=== PATIENT | female | born 1965 | race Caucasian/White ===

== ENCOUNTER 2020-10-24 21:44 | Emergency (ER) | payer MEDICARE ==
[2020-10-24 21:52] VITALS: RESP 22; TEMP 98.2
[2020-10-24] MEDS ORDERED: IPRATROPIUM-ALBUTEROL 3 ML NEB INHALATION STA (22:00)
[2020-10-24] MEDS ORDERED: SODIUM CHLORIDE 0.9% 1,000 ML IV STA (22:00)
[2020-10-24] MEDS ORDERED: SODIUM CHLORIDE 0.9% 500 ML 500 ML IV STA (22:00)
[2020-10-24] MEDS ORDERED: methylPREDNISolone SOD SUCCI 125 MG/2 ML VIAL IV STA (22:00)
--- NOTE | 2020-10-24 22:05 | ED ---
SOB HPI - General Chief Complaint: Shortness of Breath Stated Complaint: SOB Time Seen by Provider: 10/24/20 21:55 Source: police - History of Present Illness Initial Comments: This 55-year-old female presents with a complaint of shortness of breath. She is brought in by the police. She does relate having a cough with yellowish production as well. Symptom onset was approximately 2 weeks ago. She denies any current leg pain or swelling. She denies any chest pain. She denies any known fevers. She does relate a history of COPD and smokes approximately one pack per day. She relates that she previously used to smoke 3-4 packs per day. She does utilize an inhaler at home. She denies any known exposure to the watson virus. She had a negative test approximately 2 weeks ago. - Related Data Previous Rx's Medication Instructions Recorded Azithromycin [Zithromax Z-pack] 0 mg PO DIRECTED #6 tab 10/24/20 RX: predniSONE [Deltasone] 20 mg PO BID #10 tab 10/24/20 Allergies Allergy/AdvReac Type Severity Reaction Status Date / Time No Known Allergies Allergy Verified 10/24/20 22:24 Review of Systems ROS Statement: Those systems with pertinent positive or pertinent negative responses have been documented in the HPI. ROS Other: All systems not noted in ROS Statement are negative. Past Medical History Past Medical History: COPD History of Any Multi-Drug Resistant Organisms: None Reported Past Surgical History: No Surgical Hx Reported Past Psychological History: Bipolar Smoking Status: Current every day smoker Past Alcohol Use History: None Reported Past Drug Use History: None Reported General Exam - General Exam Comments Initial Comments: GENERAL: The patient is well nourished and well hydrated. VITAL SIGNS: Heart rate, blood pressure, respiratory rate reviewed as recorded in nurse's notes. EYES: Pupils are round and reactive. Extraocular movements are intact. No c onjunctival / lid redness or swelling. ENT: No external evidence of injury, swelling, or ecchymosis. Airway is patent. Throat is clear. NECK: Nontender. No swelling or evidence of injury. No subcutaneous emphysema. Trachea is midline. No thyroid mass. HEART: Regular rate and rhythm. Good peripheral pulses. LUNGS/CHEST: There is diminished breath sounds bilaterally with slight wheezing. No ecchymosis, subcutaneous emphysema, or tenderness. ABDOMEN: Abdomen soft without tenderness. No palpable masses or organomegaly. No peritoneal signs. No abdominal wall swelling or ecchymosis. EXTREMITIES: No extremity tenderness. Normal muscle tone and function. No thoracolumbar tenderness. NEUROLOGIC: Sensation is grossly intact. Cranial nerve exam reveals face is symmetrical, tongue is midline, speech is clear. SKIN: No abrasions or ecchymosis is noted. No induration or masses noted. PSYCHIATRIC: Alert and oriented. Appropriate behavior and judgment. Course Vital Signs 10/24/20 10/24/20 10/24/20 21:45 22:09 22:19 Temperature 98.2 F Pulse Rate 84 82 82 Respiratory 22 Rate Blood Pressure 125/40 O2 Sat by Pulse 92 L Oximetry Medical Decision Making - Medical Decision Making The patient was seen and examined. All diagnostics are reviewed. An IV is established and she is mildly hydrated. She receives Solu-Medrol 125 mg IV as well as a DuoNeb breathing treatment. The EKG shows a normal sinus rhythm at a rate of 81. There is no acute ST-T wave changes identified. The WI intervals 134, QRS duration is 96, and the QTc interval is 455. The patient had a chest x-ray done which does not show any acute abnormalities upon my review with final radiologic review pending. The laboratory does show mild leukocytosis. Overall, it is felt as though she likely does have an exacerbation of COPD. She likely also does have a degree of bronchitis. Her Watson virus test is negative. It is felt as though she would benefit from admission to the hospital. She refuses admission. She states that she was just admitted to the hospital couple weeks ago and was on antibiotics as well. Risks and benefits of admission versus discharge are discussed and ultimately detail. It is strongly felt that she would benefit from admission to the hospital as her oxygenation level dropped down to 87% on room air. She still refuses and wants to leave AGAINST MEDICAL ADVICE. She does have an albuterol inhaler at home that she can utilize. She will be signed out AGAINST MEDICAL ADVICE but will be prescribed antibiotics and steroids as well. Return parameters are discussed. She does appear quite lucid and medical decision-making is intact. - Lab Data Result diagrams: 10/24/20 22:17 10/24/20 22:17 Lab Results 10/24/20 10/24/20 10/24/20 Range/Units 22:17 22:17 22:17 WBC 12.3 H (3.8-10.6) k/uL RBC 5.72 H (3.80-5.40) m/uL Hgb 16.3 H (11.4-16.0) gm/dL Hct 48.8 H (34.0-46.0) % MCV 85.4 (80.0-100.0) fL MCH 28.5 (25.0-35.0) pg MCHC 33.4 (31.0-37.0) g/dL RDW 14.2 (11.5-15.5) % Plt Count 268 (150-450) k/uL MPV 6.9 Neutrophils % 71 % Lymphocytes % 21 % Monocytes % 5 % Eosinophils % 1 % Basophils % 1 % Neutrophils # 8.7 H (1.3-7.7) k/uL Lymphocytes # 2.5 (1.0-4.8) k/uL Monocytes # 0.6 (0-1.0) k/uL Eosinophils # 0.1 (0-0.7) k/uL Basophils # 0.1 (0-0.2) k/uL PT 10.2 (9.0-12.0) sec INR 0.9 (<1.2) APTT 23.3 (22.0-30.0) sec Sodium 138 (137-145) mmol/L Potassium 4.1 (3.5-5.1) mmol/L Chloride 101 (98-107) mmol/L Carbon Dioxide 30 (22-30) mmol/L Anion Gap 7 mmol/L BUN 14 (7-17) mg/dL Creatinine 0.63 (0.52-1.04) mg/dL Est GFR (CKD-EPI)AfAm >90 (>60 ml/min/1.73 sqM) Est GFR (CKD-EPI)NonAf >90 (>60 ml/min/1.73 sqM) Glucose 189 H (74-99) mg/dL Plasma Lactic Acid Roscoe (0.7-2.0) mmol/L Calcium 9.5 (8.4-10.2) mg/dL Total Bilirubin 0.6 (0.2-1.3) mg/dL AST 21 (14-36) U/L ALT 13 (4-34) U/L Alkaline Phosphatase 115 (38-126) U/L Troponin I (0.000-0.034) ng/mL Total Protein 7.3 (6.3-8.2) g/dL Albumin 4.2 (3.5-5.0) g/dL Coronavirus (PCR) (Not Detectd) 10/24/20 10/24/20 10/24/20 Range/Units 22:17 22:17 22:18 WBC (3.8-10.6) k/uL RBC (3.80-5.40) m/uL Hgb (11.4-16.0) gm/dL Hct (34.0-46.0) % MCV (80.0-100.0) fL MCH (25.0-35.0) pg MCHC (31.0-37.0) g/dL RDW (11.5-15.5) % Plt Count (150-450) k/uL MPV Neutrophils % % Lymphocytes % % Monocytes % % Eosinophils % % Basophils % % Neutrophils # (1.3-7.7) k/uL Lymphocytes # (1.0-4.8) k/uL Monocytes # (0-1.0) k/uL Eosinophils # (0-0.7) k/uL Basophils # (0-0.2) k/uL PT (9.0-12.0) sec INR (<1.2) APTT (22.0-30.0) sec Sodium (137-145) mmol/L Potassium (3.5-5.1) mmol/L Chloride (98-107) mmol/L Carbon Dioxide (22-30) mmol/L Anion Gap mmol/L BUN (7-17) mg/dL Creatinine (0.52-1.04) mg/dL Est GFR (CKD-EPI)AfAm (>60 ml/min/1.73 sqM) Est GFR (CKD-EPI)NonAf (>60 ml/min/1.73 sqM) Glucose (74-99) mg/dL Plasma Lactic Acid Roscoe 1.2 (0.7-2.0) mmol/L Calcium (8.4-10.2) mg/dL Total Bilirubin (0.2-1.3) mg/dL AST (14-36) U/L ALT (4-34) U/L Alkaline Phosphatase (38-126) U/L Troponin I <0.012 (0.000-0.034) ng/mL Total Protein (6.3-8.2) g/dL Albumin (3.5-5.0) g/dL Coronavirus (PCR) Not Detected (Not Detectd) Disposition Clinical Impression: Dyspnea, Acute respiratory failure, COPD exacerbation, Tobacco abuse, Hypoxia, Bronchitis, Left against medical advice Disposition: Left Against Medical Advice Condition: Fair Instructions (If sedation given, give patient instructions): COPD (Chronic Obstructive Pulmonary Disease) (ED), Acute Bronchitis (ED), How to Stop Smoking (ED) Additional Instructions: Please return if you change her mind about admission or if your symptoms worsen. Prescriptions: RX: predniSONE [Deltasone] 20 mg PO BID #10 tab Azithromycin [Zithromax Z-pack] 0 mg PO DIRECTED #6 tab Is patient prescribed a controlled substance at d/c from ED?: No Referrals: Gabriel Moyer DO [Primary Care Provider] - 1-2 days Time of Disposition: 23:05
[2020-10-24 22:34] LABS: Basophils # (A) 0.1 k/uL (0-0.2); Basophils % (A) 1 %; Eosinophils # (A) 0.1 k/uL (0-0.7); Eosinophils % (A) 1 %; HCT 48.8 % (34.0-46.0); HGB 16.3 gm/dL (11.4-16.0); Lymphocytes # (A) 2.5 k/uL (1.0-4.8); Lymphocytes % (A) 21 %; MCH 28.5 pg (25.0-35.0); MCHC 33.4 g/dL (31.0-37.0); MCV 85.4 fL (80.0-100.0); Mean Platelet Volume 6.9; Monocytes # (A) 0.6 k/uL (0-1.0); Monocytes % (A) 5 %; Neutrophils # (A) 8.7 k/uL (1.3-7.7); Neutrophils % (A) 71 %; Platelet Count 268 k/uL (150-450); RBC 5.72 m/uL (3.80-5.40); RDW 14.2 % (11.5-15.5); WBC 12.3 k/uL (3.8-10.6)
[2020-10-24 22:45] LABS: ALT 13 U/L (4-34); AST 21 U/L (14-36); African American GFR (CKD) >90 (>60 ml/min/1.73 sqM); Albumin 4.2 g/dL (3.5-5.0); Alkaline Phosphatase 115 U/L (38-126); Anion Gap 7 mmol/L; Blood Urea Nitrogen 14 mg/dL (7-17); Calcium 9.5 mg/dL (8.4-10.2); Carbon Dioxide 30 mmol/L (22-30); Chloride 101 mmol/L (98-107); Glucose 189 mg/dL (74-99); Non-African American GFR(CKD) >90 (>60 ml/min/1.73 sqM); Potassium 4.1 mmol/L (3.5-5.1); Sodium 138 mmol/L (137-145); Total Bilirubin 0.6 mg/dL (0.2-1.3); Total Protein 7.3 g/dL (6.3-8.2)
[2020-10-24 22:48] LABS: INR 0.9 (<1.2); Partial Thromboplastin Time 23.3 sec (22.0-30.0); Prothrombin Time 10.2 sec (9.0-12.0)
--- NOTE | 2020-10-24 23:06 | XR ---
EXAMINATION TYPE: XR chest 2V DATE OF EXAM: 10/24/2020 COMPARISON: None HISTORY: Short of breath TECHNIQUE: FINDINGS: There is no heart failure nor confluent pneumonic infiltrate. Costophrenic angles are clear . There are no hilar masses. Heart size is normal. IMPRESSION: No active cardiopulmonary disease. Normal heart.
[2020-10-24 23:45] VITALS: BP 124/78; PULSE 84
== END 2020-10-24 23:42 | disposition left against medical advice (07) ==
LOC: EC 21:44
DX: J96.01 Acute respiratory failure with hypoxia (principal); J44.1 Chronic obstructive pulmonary disease with (acute) exacerbation; F17.210 Nicotine dependence, cigarettes, uncomplicated; Z20.822 Contact with and (suspected) exposure to COVID-19
CPT/HCPCS: 36415; 94640; 93005; 83880; 80053; 83605; 84484; 85025; 85610; 85730; 87040; 87635; 71046; 99285; 96374; 96361; J2930

== ENCOUNTER → 2022-11-09 | Outpatient (CLI) | payer MEDICARE ==
[2022-11-09 15:09] LABS: Partial Thromboplastin Time 24.4 sec (22.0-30.0); Prothrombin Time 10.6 sec (9.0-12.0)
[2022-11-09 22:52] LABS: HCT 51.8 % (37.2-46.3); HGB 16.9 g/dL (12.0-15.0); MCH 29.2 pg (27.0-32.0); MCHC 32.6 g/dL (32.0-37.0); MCV 89.5 fL (80.0-97.0); Mean Platelet Volume 9.4 fL (9.5-12.2); NRBC Per 100 WBC 0 /100 WBCS (0.0-0.0); Platelet Count 227 X 10*3/uL (140-440); RBC 5.79 X 10*6/uL (4.10-5.20); RDW 14.9 % (11.5-14.5); WBC 13.54 X 10*3/uL (4.50-10.00)
[2022-11-09 23:34] LABS: African American GFR (CKD) 118.8 (60.0-200.0); Albumin 4.6 g/dL (3.8-4.9); Albumin/Globulin Ratio 1.96 (1.60-3.17); Anion Gap 10.1 mmol/L (10.00-18.00); BUN/Creat Ratio 18.6 Ratio (12.00-20.00); Blood Urea Nitrogen 11.2 mg/dL (9.0-27.0); Calcium 10.1 mg/dL (8.7-10.3); Carbon Dioxide 27.6 mmol/L (20.0-27.5); Globulin 2.3 g/dL (1.6-3.3); Non-African American GFR(CKD) 102.5 (60.0-200.0); Potassium 4.1 mmol/L (3.5-5.5); Total Bilirubin 0.5 mg/dL (0.30-1.20); Total Protein 6.9 g/dL (6.2-8.2)
[2022-11-09 23:55] LABS: Appearance,Urine Clear (Clear); Bilirubin,Urine Negative (Negative); Blood,Urine Negative (Negative); Color,Urine Yellow (Yellow); Ketones,Urine Negative (Negative); Nitrite,Urine Negative (Negative); PH, Urine 7.5 (5.0-8.0)
== END | disposition home or self-care (01) ==
LOC: LABPAT 13:58
PROVIDERS: ATTEND Orthopaedic Surgery
DX: Z01.812 Encounter for preprocedural laboratory examination (principal); M17.11 Unilateral primary osteoarthritis, right knee
CPT/HCPCS: 36415; 80053; 81003; 85027; 85610; 85730; 87070

== ENCOUNTER → 2022-11-28 | Outpatient (CLI) | payer MEDICARE ==
[2022-11-28 09:30] LABS: Partial Thromboplastin Time 22.2 sec (22.0-30.0); Prothrombin Time 10.2 sec (9.0-12.0)
[2022-11-28 16:29] LABS: HCT 46.3 % (37.2-46.3); HGB 15.3 g/dL (12.0-15.0); MCH 29.7 pg (27.0-32.0); MCV 89.9 fL (80.0-97.0); Mean Platelet Volume 8.9 fL (9.5-12.2); NRBC Per 100 WBC 0 /100 WBCS (0.0-0.0); Platelet Count 396 X 10*3/uL (140-440); RBC 5.15 X 10*6/uL (4.10-5.20); RDW 14.4 % (11.5-14.5); WBC 12.01 X 10*3/uL (4.50-10.00)
[2022-11-28 16:43] LABS: ALT 39 U/L (8-44); AST 27 U/L (13-35); African American GFR (CKD) 121.8 (60.0-200.0); Albumin 4.3 g/dL (3.8-4.9); Albumin/Globulin Ratio 1.64 (1.60-3.17); Alkaline Phosphatase 107 U/L (41-126); Blood Urea Nitrogen 15.4 mg/dL (9.0-27.0); Calcium 10.3 mg/dL (8.7-10.3); Carbon Dioxide 26.9 mmol/L (20.0-27.5); Chloride 101 mmol/L (96-109); Globulin 2.6 g/dL (1.6-3.3); Glucose 147 mg/dL (70-110); Non-African American GFR(CKD) 105.1 (60.0-200.0); Potassium 4.6 mmol/L (3.5-5.5); Sodium 140 mmol/L (135-145); Total Bilirubin <0.15 mg/dL (0.30-1.20)
[2022-11-28 23:41] LABS: Appearance,Urine Clear (Clear); Bilirubin,Urine Negative (Negative); Blood,Urine Negative (Negative); Color,Urine Yellow (Yellow); Ketones,Urine Negative (Negative); Nitrite,Urine Negative (Negative); Specific Gravity,Urine 1.008 (1.001-1.030); Urobilinogen,Urine 0.2 (0.2,1.0)
== END | disposition home or self-care (01) ==
LOC: LABPAT 08:35
PROVIDERS: ATTEND Orthopaedic Surgery
DX: Z01.812 Encounter for preprocedural laboratory examination (principal); M17.11 Unilateral primary osteoarthritis, right knee
CPT/HCPCS: 36415; 80053; 81003; 85027; 85610; 85730

== ENCOUNTER 2022-12-11 11:32 | Observation (INO) | payer MEDICARE ==
[2022-12-05 10:02] VITALS: BMI 37.4
[~2022-12-11 11:32] MED LIST: ACETAMINOPHEN TAB 500 MG TAB PO PRN; GABAPENTIN 300 MG CAP PO PRN; MELOXICAM 7.5 MG TAB PO PRN; TRANEXAMIC ACID IN NACL,ISO-OS 1,000 MG in SALINE 1 100ML.BAG IVPB PRN
[2022-12-11] MEDS ORDERED: LACTATED RINGERS 1,000 ML IV ONE ×4 (12:28→17:30)
[2022-12-11 12:30] LABS: Glucose,Whole Blood 131 mg/dL (70-110)
[2022-12-11] MEDS ORDERED: ONDANSETRON 4 MG/2 ML VIAL ONE (12:37)
[2022-12-11] MEDS ORDERED: DEXAMETHASONE SOD PHOSPHATE 4 MG/ML 1 ML VIAL IVP ONE (12:41)
[2022-12-11] MEDS ORDERED: MIDAZOLAM 2 MG/2 ML VIAL IVP ONE (12:46)
[2022-12-11] MEDS ORDERED: ROPIVACAINE 1,100 MG, SODIUM CHLORIDE 0.9% 500 ML 330 ML, EMPTY PAIN BALL 1 EACH MISCELLANE PRN ×2 (13:13)
--- NOTE | 2022-12-11 13:16 | P.ANPRN ---
Procedure Note - Anesthesia - Nerve Block Performed Right Adductor Canal Time Out Performed: Yes (12:45) Date of Procedure: 12/11/22 Procedure Start Time: 12:45 Procedure Stop Time: 12:51 Location of Patient: PreOp Indication: Acute Post-Operative Pain, Requested by Surgeon (DR Nielson) Sedation Type: Sedate with meaningful contact maintained Preparation: Sterile Prep, Sterile Dressing Position: Supine Catheter: Indwelling Needle Types: Pajunk Needle Gauge: 21 Ultrasound used to visualize needle placement: Yes Ultrasound used to observe medication spread: Yes Injectate: 0.5% Ropivacaine (see comment for volume) (20cc) Blood Aspirated: No Pain Paresthesia on Injection Noted: No Resistance on Injection: Normal Image Stored and Saved: Yes Events: Uneventful and Well Tolerated
--- NOTE | 2022-12-11 13:18 | P.ANPRN ---
Procedure Note - Anesthesia - Nerve Block Performed Right iPack Time Out Performed: Yes Date of Procedure: 12/11/22 Procedure Start Time: 12:52 Procedure Stop Time: 12:57 Location of Patient: PreOp Indication: Acute Post-Operative Pain, Requested by Surgeon (Dr Nielson) Sedation Type: Sedate with meaningful contact maintained Preparation: Sterile Prep Position: Supine Catheter: None Needle Types: Pajunk Needle Gauge: 21 Ultrasound used to visualize needle placement: Yes Ultrasound used to observe medication spread: Yes Injectate: 0.5% Ropivacaine (see comment for volume) (15cc +5cc PF Normal saline) Blood Aspirated: No Pain Paresthesia on Injection Noted: No Resistance on Injection: Normal Image Stored and Saved: Yes Events: Uneventful and Well Tolerated
[2022-12-11] MEDS ORDERED: MIDAZOLAM 2 MG/2 ML VIAL ONE (13:48)
[2022-12-11] MEDS ORDERED: SODIUM CHLORIDE 0.9% (PF) 10 ML VIAL ONE (13:48)
[2022-12-11] MEDS ORDERED: TRANEXAMIC ACID IN NACL,ISO-OS 1,000 MG/100 ML BAG ONE (13:48)
[2022-12-11] MEDS ORDERED: diphenhydrAMINE 50 MG/ML 1 ML VIAL ONE (13:48)
[2022-12-11] MEDS ORDERED: ROPIVACAINE 5 MG/ML 30 ML VIAL ONE (13:48)
[2022-12-11] MEDS ORDERED: ceFAZolin 1,000 MG in SODIUM CHLORIDE 0.9% 1,000 ML IRRIGATION ONE (14:35)
--- NOTE | 2022-12-11 15:10 | P.OP ---
Date of Procedure: 12/11/22 Preoperative Diagnosis: Severe osteoarthritis of the right knee Postoperative Diagnosis: Severe osteoarthritis right knee Procedure(s) Performed: Right total knee arthroplasty Implants: [employer] Journey II CR Oxinium cruciate retaining femoral component size 5, right [employer] Journey nonporous tibial baseplate size 4, right [employer] Journey II, XLPE Deep Dished articular insert, size 11 mm, Size 3-4, right [employer] Journey Betzaida II resurfacing patellar component, oval, 29 mm All components were cemented using Palacos R bone cement The articulation is Oxinium on polyethylene Anesthesia: spinal Surgeon: Nikolay Nielson Geologic Technician #1: Larisa Navarro Estimated Blood Loss (ml): 40 Pathology: other (Bone cartilage) Condition: stable Disposition: PACU Indications for Procedure: The patient's knee is end-stage, and conservative management has failed. The operation of knee replacement has been discussed at length in the office, as well as potential risks and complications. These are inclusive of, but not limited to: Infection, bleeding, scarring, discomfort, stiffness, blood vessel and nerve damage, need for further surgery, failure to relieve symptoms, persistence, recurrence, or worsening of problems, loosening, dislocation, wear, blood clot, pulmonary embolism, , gait dysfunction, stiffness, and other risks as discussed in the office. Patient elects to proceed and the consent form has been signed. Operative Findings: The operative findings are consistent with severe osteoarthritis of the right knee Description of Procedure: Patient was seen in the preoperative area and the consent was reviewed and the operative site was marked with a skin marker. The patient verified the procedure and the operative site. An adductor canal pain catheter and an IPACK block were placed by anesthesia in the preoperative area. The patient was then brought to the operating room and positioned on the operating room table in the supine position. Preoperative antibiotics and a gram of transexamic acid were given intravenously. A spinal anesthetic was administered by the anesthesia department. Care was taken to make sure that all pressure points were adequately padded. A tourniquet was placed on the upper thigh and the lower extremity was prepped with ChloraPrep and draped in usual sterile fashion. A universal timeout was then performed which confirmed the patient's name, surgical site, ALLERGIES, and consent. The lower extremity was then exsanguinated and tourniquet was inflated to 250 mmHg. A standard anterior midline approach to the knee was performed. The skin and subcutaneous tissue were sharply dissected down to the patellar tendon. A medial parapatellar arthrotomy was then performed. The knee was then extended, the patellar was everted, and the knee was flexed. The infra-patellar fat pad was removed in order to enhance exposure. The anterior horns of both menisci were excised, and a release was performed to the posterior medial aspect of the knee. On gross visual inspection, there was complete loss of articular cartilage in the medial and patellofemoral joint spaces. There was also significant cartilage damage in the lateral compartment. There were multiple periarticular osteophytes globally about the knee which were then removed with a Ronguer. The femoral canal was then opened with the 9.5 mm intramedullary drill. The 8 mm intramedullary katelyn was then inserted into the femoral canal with the distal femoral cutting guide set for 5 of valgus. The distal femoral cutting block was then pinned in place. The intramedullary katelyn was then removed, and the distal femur was then cut. The cutting block was then removed and the cut was checked for symmetry. The resected bone was then measured to confirm the appropriate distal femoral resection. Next, the sizing guide was then placed and set for 3 external rotation based off of the epicondylar axis and Oatman's line. Pins were then placed and the drill holes, and the femur was sized with the sizing stylus. The pins were then removed, and the sizing guide was then removed. The spikes of the appropriate size femoral block was then placed into the predrilled holes, and malleted into place. Two 45 mm pins were then placed into the fixation holes on the cutting block. An carlita wing was then used to ensure there would be no notching with the anterior cut. The anterior condyles were cut without notching. The anterior chord cut was then performed, followed by the posterior cut, posterior chamfer cut, and the anterior chamfer cut. The collateral ligaments were protected during the entire process. The cutting block was then removed. Any remaining bone and osteophytes were removed from the femur with a Ronguer. Attention was then directed to the tibia. The remaining ACL was removed with a Ronguer, and the tibia was then gently subluxed forward with a large bent knee retractor. Any remaining menisci were excised. The posterior lateral corner was cauterized in order to coagulate the lateral geniculate artery. The extra medullary tibial cutting guide was then placed, set for the appropriate rotation, slope, and depth of resection. The proximal tibia cutting guide was then pinned in place. Proximal tibia was then cut and sized. A curved osteotome was then used to remove any posterior osteophytes from the distal femur. The femoral trial was placed. A narrow saw blade was then used to remove the anterior intracondylar femoral bone. The CR notch trial was then placed. The t ibial trial was placed with the appropriate-sized insert. The knee was able to fully extend and flex to 130 and was stable throughout all range of motion. The knee was then extended and the patella was everted. Patella was then measured, and then using an osteotomy guide, the patella was cut at the appropriate level. The patellar component was sized. The patellar drill guide was placed and the patella was drilled. The patella trial was then placed. The knee was then taken through range of motion with the patella trial and the patella tracked normally using the no thumbs technique. The patella trial was then removed. The knee was then flexed and lug holes were drilled through the femoral trial and the femoral trial was then removed. The tibial was then re- exposed, and the tibial broach guide was then pinned in place after it was set for the appropriate rotation to allow for the most coverage without overhang. The tibia was then reamed and broached. The femoral canal was plugged with autologous bone. The cut surfaces of bone were then irrigated with pulsatile lavage. The knee was also irrigated with Irrisept solution. The components were then opened, the cement was mixed. Cement was placed on the backside of the femoral, tibial, and patellar components. Cement was then applied to the tibial surface and pressurized into the surface using finger pressurization technique. The tibial component was then applied and excess cement was removed after it was impacted securely noted to be flush with the cut surface. In similar fashion, the cement was applied to the cut femoral surface, pressurized and using finger pressurization the component was impacted in place. Excess cement was removed. The polyethylene spacer was then implanted and locked into position. Patellar component was then applied in a similar technique and the patellar clamp was used to hold patella in place while the cement hardened. The knee was held in full extension while the cement hardened. Once the cement had fully hardened, the knee was reinspected. Any other cement extrusion was removed the final range of motion testing showed range of motion from 0-130 with excellent stability, both medial and laterally and appropriate alignment of the leg. Patella tracked normally. After the cemented hardened, the tourniquet was released and hemostasis was obtained. A second gram of transexamic acid was given intravenously. The knee was again irrigated. The knee was again taken through range of motion and found to be stable throughout all range of motion of 0-130, and the patella tracked normally. The fascia was then closed with 0 Vicryl followed by #2 strata fix suture. The subcutaneous tissue was closed with 3-0 Vicryl and 3-0 strata fix. Exofin glue was used for the skin and placed with the knee in flexion. After the glue had dried, and Optafoam silver impregnated dressing was applied. A lightly compressive dressing was applied using web roll and wrap. Patient was then transferred to the stretcher and taken to recovery room in stable condition. Sponge and needle counts were correct. The pest controller assistant GLORIA Palumbo was required due the complexity surgery and the need for a skilled surgical elastic knitter. She assisted in positioning, draping, retraction, and closure of the wound.
[2022-12-11] MEDS ORDERED: NA PHOS,M-B/NA PHOS,DI-BA 133 ML ENEMA RECTAL PRN (15:35)
[2022-12-11] MEDS ORDERED: NALOXONE 0.4 MG/ML 1 ML VIAL IV PRN ×2 (15:35→16:21)
[2022-12-11] MEDS ORDERED: MAGNESIUM HYDROXIDE 2,400 MG/10 ML CUP PO PRN (15:35)
[2022-12-11] MEDS ORDERED: bisacodyL 10 MG SUPP RECTAL PRN (15:35)
[2022-12-11] MEDS ORDERED: HYDROmorphone 0.5 MG/0.5 ML SYRINGE IVP PRN ×3 (15:50)
[2022-12-11] MEDS ORDERED: oxyCODONE-APAP 7.5-325MG 1 EACH TAB PO PRN (15:50)
[2022-12-11] MEDS ORDERED: ACETAMINOPHEN TAB 325 MG TAB PO PRN (16:16)
[2022-12-11] MEDS: SODIUM CHLORIDE 0.9% 1,000 ML IV SCH (16:26)
--- NOTE | 2022-12-11 16:49 | XR ---
EXAMINATION TYPE: XR knee limited RT DATE OF EXAM: 12/11/2022 COMPARISON: Two-view right knee HISTORY: Postop evaluation TECHNIQUE: 2 view right knee FINDINGS: Tibial and femoral components of place. No joint effusion is evident. Postsurgical soft tis lenore changes are evident. IMPRESSION: 1. No acute fractures post placement
[2022-12-11] MEDS: HYDROmorphone PCA 10 MG/50 ML BAG IV PRN (19:40)
[2022-12-11] MEDS ORDERED: DEXTROSE 50% SYRINGE 50 ML IVP PRN ×2 (20:33)
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
[2022-12-11] MEDS: IPRATROPIUM-ALBUTEROL 3 ML NEB INHALATION SCH (20:47)
[2022-12-11] MEDS: BUDESONIDE 1 MG/2 ML NEBU INHALATION SCH (20:47)
[2022-12-11] MEDS ORDERED: SUBOXONE SUBLINGUAL SCH (21:00)
[2022-12-11] MEDS: LITHIUM CARBONATE 150 MG CAP PO SCH (21:15)
[2022-12-11] MEDS: ATORVASTATIN 80 MG TAB PO SCH (21:15)
[2022-12-11] MEDS: ALPRAZolam 1 MG TAB PO SCH (21:15)
[2022-12-11] MEDS: SENNOSIDES-DOCUSATE SODIUM 1 EACH TAB PO SCH (21:15)
[2022-12-11] MEDS: ASPIRIN 325 MG TAB PO SCH (21:16)
[2022-12-11] MEDS: NICOTINE 21MG/24HR PATCH TRANSDERM SCH (21:16)
[2022-12-11] MEDS: MELATONIN 5 MG TABLET PO SCH (21:16)
[2022-12-11] MEDS: SUBOXONE SUBLINGUAL SCH (21:16)
[2022-12-11 21:25] LABS: Glucose,Whole Blood 201 mg/dL (70-110)
[2022-12-11] MEDS: INSULIN ASPART (NovoLOG) 100 UNIT/ML VIAL SQ SCH (21:29)
[2022-12-12] MEDS: KETOROLAC 15 MG/ML 1 ML VIAL IVP PRN ×3 (00:16→18:07)
[2022-12-12] MEDS: SODIUM CHLORIDE 0.9% 1,000 ML IV SCH ×2 (06:12→22:20)
[2022-12-12 06:14] LABS: Glucose,Whole Blood 182 mg/dL (70-110)
[2022-12-12] MEDS: INSULIN ASPART (NovoLOG) 100 UNIT/ML VIAL SQ SCH ×4 (06:41→20:40)
[2022-12-12] MEDS: HYDROmorphone PCA 10 MG/50 ML BAG IV PRN (07:04)
--- NOTE | 2022-12-12 07:21 | P.PN ---
Progress Note - Text Progress Note Date: 12/12/22 Postoperative day # 1 status post total knee arthroplasty, and adductor canal catheter placed for postoperative analgesia, currently at ropivacaine 0.2% 8 mL per hour and continuous infusion, patient had a history of opiate addiction ,and she is currently on Dilaudid intravenous FEED HOUSE SUPERVISOR, for breakthrough pain. Assessment and plan= Acute postoperative pain, adductor canal catheter for pain control, we'll continue the same management.
--- NOTE | 2022-12-12 07:44 | P.DS ---
Providers Expected date of discharge: 12/12/22 Attending physician: Nikolay Nielson Consults: 12/11/22 15:35 Consult Physician Routine Consulting Provider: Shen Moreno Consult Reason/Comments: medical management Do you want consulting provider notified?: Yes Primary care physician: Gifty Willis - Discharge Diagnosis(es) (1) Primary localized osteoarthritis of right knee Current Visit: Yes Status: Acute (2) Status post total right knee replacement Current Visit: Yes Status: Acute Hospital Course: This is a 57-year-old female who was last seen with complaint of continued right knee pain. The patient has a known history of degenerative arthritis of the right knee and presents to discuss surgical options. After discussion and consideration the patient elects to proceed with total right knee arthroplasty. The patient is seen preoperatively by her primary care physician and cleared for surgery. The patient is admitted to [facility] for total right knee arthroplasty. The procedures performed without complication or sequelae. P atient is doing well postoperatively. Vital signs are stable at discharge. Labs are stable at discharge. the patient is ambulating well with walker with minimal assistance. The patient is discharged to home on postop day #1 pending medical clearance. Please see orders and refer to the med rec for accurate list of medications. The patient has a pain management contract. We will send her home with 5 days worth of oxycodone 10/325. The patient is aware that she needs to contact her pain management doctor for further prescriptions. Patient Condition at Discharge: Stable Plan - Discharge Summary Discharge Rx Participant: No New Discharge Prescriptions: New oxyCODONE-APAP 10-325MG [Percocet 10-325 mg] 1 tab PO Q6HR PRN 5 Days #20 tab PRN Reason: Pain Aspirin 325 mg PO BID #60 tab No Action Cholecalciferol [Vitamin D3 (25 Mcg = 1000 Iu)] 25 mcg PO DAILY ALPRAZolam [Xanax] 1 mg PO BID [place] Carbonate 300 mg PO 1700 [place] Carbonate 150 mg PO QAM lisinopriL [Zestril] 5 mg PO 1700 Aspirin 81 mg PO DAILY Melatonin 1 dose PO HS Cyanocobalamin (Vitamin B-12) [Vitamin B-12] 1,000 mcg PO DAILY Acetaminophen Tab [Tylenol] 1,000 - 1,500 mg PO BID PRN PRN Reason: Pain Naproxen Sodium [Aleve] 220 mg PO BID PRN PRN Reason: Pain Buprenorphine HCl/Naloxone HCl [Buprenorphine-Nalox 2-0.5MG Tb] 0.5 film SUBLINGUAL BID fluPHENAZine [Prolixin 5MG] 5 mg PO 1700 metFORMIN HCL [Glucophage] 1,000 mg PO 1700 Ascorbic Acid [Vitamin C] 1,000 mg PO DAILY Rosuvastatin Calcium 40 mg PO DAILY@1700 Discharge Medication List ALPRAZolam [Xanax] 1 mg PO BID 11/14/22 [History] Acetaminophen Tab [Tylenol] 1,000 - 1,500 mg PO BID PRN 11/14/22 [History] Ascorbic Acid [Vitamin C] 1,000 mg PO DAILY 11/14/22 [History] Aspirin 81 mg PO DAILY 11/14/22 [History] Buprenorphine HCl/Naloxone HCl [Buprenorphine-Nalox 2-0.5MG Tb] 0.5 film SUBLINGUAL BID 11/14/22 [History] Cholecalciferol [Vitamin D3 (25 Mcg = 1000 Iu)] 25 mcg PO DAILY 11/14/22 [History] Cyanocobalamin (Vitamin B-12) [Vitamin B-12] 1,000 mcg PO DAILY 11/14/22 [History] [place] Carbonate 150 mg PO QAM 11/14/22 [History] [place] Carbonate 300 mg PO 1700 11/14/22 [History] Melatonin 1 dose PO HS 11/14/22 [History] Naproxen Sodium [Aleve] 220 mg PO BID PRN 11/14/22 [History] fluPHENAZine [Prolixin 5MG] 5 mg PO 1700 11/14/22 [History] lisinopriL [Zestril] 5 mg PO 1700 11/14/22 [History] metFORMIN HCL [Glucophage] 1,000 mg PO 1700 11/14/22 [History] Rosuvastatin Calcium 40 mg PO DAILY@1700 12/05/22 [History] Aspirin 325 mg PO BID #60 tab 12/12/22 [Rx] oxyCODONE-APAP 10-325MG [Percocet 10-325 mg] 1 tab PO Q6HR PRN 5 Days #20 tab 0 12/12/22 [Rx] Discharge Disposition: HOME SELF-CARE
[2022-12-12] MEDS: BUDESONIDE 1 MG/2 ML NEBU INHALATION SCH ×2 (08:19→21:27)
[2022-12-12] MEDS: IPRATROPIUM-ALBUTEROL 3 ML NEB INHALATION SCH ×4 (08:19→21:28)
[2022-12-12] MEDS ORDERED: ASPIRIN 81 MG PO SCH (09:00)
[2022-12-12] MEDS: LITHIUM CARBONATE 150 MG CAP PO SCH ×2 (09:53→17:18)
[2022-12-12] MEDS: ASPIRIN 325 MG TAB PO SCH ×2 (09:53→20:36)
[2022-12-12] MEDS: CYANOCOBALAMIN 500 MCG TAB PO SCH (09:53)
[2022-12-12] MEDS: NICOTINE 21MG/24HR PATCH TRANSDERM SCH (09:54)
[2022-12-12] MEDS: ALPRAZolam 1 MG TAB PO SCH ×2 (09:54→20:35)
[2022-12-12] MEDS: ASCORBIC ACID 500 MG TAB PO SCH (09:54)
[2022-12-12] MEDS: CHOLECALCIFEROL 25 MCG (1000 IU) TABLET PO SCH (09:54)
[2022-12-12] MEDS: SUBOXONE SUBLINGUAL SCH ×2 (10:19→20:36)
[2022-12-12 10:55] LABS: Basophils # (A) 0.01 X 10*3/uL (0.00-0.10); Basophils % (A) 0.1 %; Eosinophils # (A) 0 X 10*3/uL (0.04-0.35); Eosinophils % (A) 0 %; HCT 41.2 % (37.2-46.3); HGB 13.4 g/dL (12.0-15.0); Immature Grans, Automated 0.5 %; Lymphocytes # (A) 2.22 X 10*3/uL (0.90-5.00); Lymphocytes % (A) 16.6 %; MCH 29.9 pg (27.0-32.0); MCHC 32.5 g/dL (32.0-37.0); Mean Platelet Volume 9.5 fL (9.5-12.2); Monocytes # (A) 1.25 X 10*3/uL (0.20-1.00); Monocytes % (A) 9.3 %; NRBC Per 100 WBC 0 /100 WBCS (0.0-0.0); Neutrophils # (A) 9.85 X 10*3/uL (1.80-7.70); Neutrophils % (A) 73.5 %; Platelet Count 225 X 10*3/uL (140-440); RBC 4.48 X 10*6/uL (4.10-5.20); RDW 14.6 % (11.5-14.5)
[2022-12-12 11:11] LABS: Glucose,Whole Blood 218 mg/dL (70-110)
[2022-12-12 16:38] LABS: Glucose,Whole Blood 166 mg/dL (70-110)
[2022-12-12] MEDS ORDERED: lisinopriL 5 MG TAB PO SCH (17:00)
[2022-12-12] MEDS ORDERED: metFORMIN 500 MG TAB PO SCH (17:00)
[2022-12-12] MEDS: ATORVASTATIN 80 MG TAB PO SCH (17:18)
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
[2022-12-12] MEDS: SENNOSIDES-DOCUSATE SODIUM 1 EACH TAB PO SCH (20:35)
[2022-12-12] MEDS: MELATONIN 5 MG TABLET PO SCH (20:36)
[2022-12-12 20:41] LABS: Glucose,Whole Blood 133 mg/dL (70-110)
[2022-12-12] MEDS: oxyCODONE-APAP 10-325MG 1 EACH TAB PO PRN (23:04)
[2022-12-13] MEDS: KETOROLAC 15 MG/ML 1 ML VIAL IVP PRN ×2 (02:27→08:36)
[2022-12-13 02:30] VITALS: RESP 20
[2022-12-13] MEDS: oxyCODONE-APAP 10-325MG 1 EACH TAB PO PRN ×2 (05:16→11:39)
[2022-12-13] MEDS: SODIUM CHLORIDE 0.9% 1,000 ML IV SCH (05:23)
[2022-12-13 05:56] LABS: Glucose,Whole Blood 146 mg/dL (70-110)
[2022-12-13] MEDS: INSULIN ASPART (NovoLOG) 100 UNIT/ML VIAL SQ SCH ×2 (06:15→11:40)
[2022-12-13 07:56] VITALS: BP 116/71; TEMP 98.6
[2022-12-13] MEDS: BUDESONIDE 1 MG/2 ML NEBU INHALATION SCH (08:30)
[2022-12-13] MEDS: IPRATROPIUM-ALBUTEROL 3 ML NEB INHALATION SCH ×2 (08:30→11:58)
[2022-12-13] MEDS: CHOLECALCIFEROL 25 MCG (1000 IU) TABLET PO SCH (08:35)
[2022-12-13] MEDS: ALPRAZolam 1 MG TAB PO SCH (08:36)
[2022-12-13] MEDS: LITHIUM CARBONATE 150 MG CAP PO SCH (08:36)
[2022-12-13] MEDS: ASCORBIC ACID 500 MG TAB PO SCH (08:36)
[2022-12-13] MEDS: ASPIRIN 325 MG TAB PO SCH (08:36)
[2022-12-13] MEDS: NICOTINE 21MG/24HR PATCH TRANSDERM SCH (08:36)
[2022-12-13] MEDS: CYANOCOBALAMIN 500 MCG TAB PO SCH (08:36)
[2022-12-13] MEDS: SUBOXONE SUBLINGUAL SCH (09:20)
[2022-12-13 11:19] LABS: Glucose,Whole Blood 153 mg/dL (70-110)
[2022-12-13 12:11] VITALS: PULSE 76
--- NOTE | 2022-12-13 12:26 | P.DS ---
Providers Date of admission: 12/13/22 08:24 Expected date of discharge: 12/13/22 Attending physician: Nikolay Nielson Consults: 12/11/22 15:35 Consult Physician Routine Consulting Provider: Shen Moreno Consult Reason/Comments: medical management Do you want consulting provider notified?: Yes Primary care physician: Gifty Willis - Discharge Diagnosis(es) (1) Primary localized osteoarthritis of right knee Current Visit: Yes Status: Acute (2) Status post total right knee replacement Current Visit: Yes Status: Acute Hospital Course: This is a 57-year-old female with known history of degenerative arthritis of the right knee. The patient presented for evaluation as an outpatient. After discussion and consideration patient elects to proceed with total knee arthroplasty. The patient is seen preoperatively by Dr. Nielson and medically cleared for surgery by their primary care physician. Patient is admitted to [facility] on 12/11/2022 for total knee arthroplasty. The procedure is performed without complication or sequelae. The patient is doing well postoperatively. Labs and vital signs are stable on day of discharge. On day of discharge patient's knee incision is healing well. There is minimal erythema. There is no drainage noted at this time. There is minimal soft tissue swelling to the knee. Patient has full foot and ankle motion without difficulty or pain. Calf is soft and nontender to palpation. Neurovascular status to the right lower extremity is intact. Patient is discharged home in good condition. Please see [facility] rec for accurate list of home medications. Patient Condition at Discharge: Stable Plan - Discharge Summary Discharge Rx Participant: No New Discharge Prescriptions: New oxyCODONE-APAP 10-325MG [Percocet 10-325 mg] 1 tab PO Q6HR PRN 5 Days #20 tab PRN Reason: Pain Aspirin 325 mg PO BID #60 tab No Action Cholecalciferol [Vitamin D3 (25 Mcg = 1000 Iu)] 25 mcg PO DAILY ALPRAZolam [Xanax] 1 mg PO BID [place] Carbonate 300 mg PO 1700 [place] Carbonate 150 mg PO QAM lisinopriL [Zestril] 5 mg PO 1700 Aspirin 81 mg PO DAILY Melatonin 1 dose PO HS Cyanocobalamin (Vitamin B-12) [Vitamin B-12] 1,000 mcg PO DAILY Acetaminophen Tab [Tylenol] 1,000 - 1,500 mg PO BID PRN PRN Reason: Pain Naproxen Sodium [Aleve] 220 mg PO BID PRN PRN Reason: Pain Buprenorphine HCl/Naloxone HCl [Buprenorphine-Nalox 2-0.5MG Tb] 0.5 film SUBLINGUAL BID fluPHENAZine [Prolixin 5MG] 5 mg PO 1700 metFORMIN HCL [Glucophage] 1,000 mg PO 1700 Ascorbic Acid [Vitamin C] 1,000 mg PO DAILY Rosuvastatin Calcium 40 mg PO DAILY@1700 Discharge Medication List ALPRAZolam [Xanax] 1 mg PO BID 11/14/22 [History] Acetaminophen Tab [Tylenol] 1,000 - 1,500 mg PO BID PRN 11/14/22 [History] Ascorbic Acid [Vitamin C] 1,000 mg PO DAILY 11/14/22 [History] Aspirin 81 mg PO DAILY 11/14/22 [History] Buprenorphine HCl/Naloxone HCl [Buprenorphine-Nalox 2-0.5MG Tb] 0.5 film SUBLINGUAL BID 11/14/22 [History] Cholecalciferol [Vitamin D3 (25 Mcg = 1000 Iu)] 25 mcg PO DAILY 11/14/22 [H istory] Cyanocobalamin (Vitamin B-12) [Vitamin B-12] 1,000 mcg PO DAILY 11/14/22 [History] [place] Carbonate 150 mg PO QAM 11/14/22 [History] [place] Carbonate 300 mg PO 1700 11/14/22 [History] Melatonin 1 dose PO HS 11/14/22 [History] Naproxen Sodium [Aleve] 220 mg PO BID PRN 11/14/22 [History] fluPHENAZine [Prolixin 5MG] 5 mg PO 1700 11/14/22 [History] lisinopriL [Zestril] 5 mg PO 1700 11/14/22 [History] metFORMIN HCL [Glucophage] 1,000 mg PO 1700 11/14/22 [History] Rosuvastatin Calcium 40 mg PO DAILY@1700 12/05/22 [History] Aspirin 325 mg PO BID #60 tab 12/12/22 [Rx] oxyCODONE-APAP 10-325MG [Percocet 10-325 mg] 1 tab PO Q6HR PRN 5 Days #20 tab 12/12/22 [Rx] Follow up Appointment(s)/Referral(s): [facility] [NON-STAFF] - As Needed (*Please call [facility] to arrange delivery of the continuous passive motion (CPM) machine.) Nikolay Nielson DO [Doctor of Osteopathic Medicine] - 12/26/22 2:50 pm () [facility] Visiting Nurse, [NON-STAFF] - 1-2 Days ([facility] will call you to schedule your in home physical therapy visits. ) Patient Instructions/Handouts: *Surgery [facility] - (O&A) Arthroscopic Knee Post-Op Instructions Activity/Diet/Wound Care/Special Instructions: Weightbearing as tolerated with a walker. CPM 5-6h daily as tolerated. Leave dressing intact. Dressing may be removed by home care nurse or by patient in 7 days. Then change dressing twice daily until follow up. May shower with initial dressing intact and after removal. If dressing become saturated, please remove. Recommend use of compression stockings daily until follow up to help prevent swelling and blood clots. May remove at night before sleeping. Please take aspirin 325mg twice daily for 30 days to prevent blood clots. Please follow up with [facility] and call with any questions or concerns, . Discharge Disposition: HOME WITH HOME HEALTH SERVICES
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
== END 2022-12-13 15:13 | disposition home health service (06) ==
LOC: OR 11:32 → 4SSUR 15:30 → OR 12-13 08:24
PROVIDERS: ADMIT Orthopaedic Surgery; ATTEND Orthopaedic Surgery
DX: M17.11 Unilateral primary osteoarthritis, right knee (principal); G89.18 Other acute postprocedural pain; J44.1 Chronic obstructive pulmonary disease with (acute) exacerbation; I10 Essential (primary) hypertension; E78.5 Hyperlipidemia, unspecified; E11.9 Type 2 diabetes mellitus without complications; F31.9 Bipolar disorder, unspecified; F11.20 Opioid dependence, uncomplicated; F41.9 Anxiety disorder, unspecified; F17.210 Nicotine dependence, cigarettes, uncomplicated; M48.061 Spinal stenosis, lumbar region without neurogenic claudication; F51.04 Psychophysiologic insomnia; E66.9 Obesity, unspecified; Z68.36 Body mass index [BMI] 36.0-36.9, adult; T21.05XD Burn of unspecified degree of buttock, subsequent encounter; X19.XXXD Contact with other heat and hot substances, subsequent encounter; R32 Unspecified urinary incontinence; Z79.82 Long term (current) use of aspirin; Z79.84 Long term (current) use of oral hypoglycemic drugs; Z88.8 Allergy status to other drugs, medicaments and biological substances; Z86.16 Personal history of COVID-19; Z97.3 Presence of spectacles and contact lenses; Z98.890 Other specified postprocedural states
CPT/HCPCS: 27447; 94640 ×5; 94760; 97161; 64999; 64448; 76942; 85025; 88300; 73560; G0378; C1713; C1776; C1751; S4990 ×3; J2250; J1200; J1100; J0690 ×3; J2405; J2795; J1885 ×2; J1170 ×2

== ENCOUNTER 2024-09-30 10:22 | Observation (INO) | payer MEDICARE ==
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
[2024-09-30 11:46] LABS: Basophils % (A) 0 %; Eosinophils % (A) 0 %; HCT 47.5 % (34.0-46.0); HGB 15.6 gm/dL (11.4-16.0); Hypochromasia Slight; Lymphocytes # (A) 1.8 k/uL (1.0-4.8); Lymphocytes % (A) 18 %; MCHC 32.8 g/dL (31.0-37.0); MCV 94.5 fL (80.0-100.0); Mean Platelet Volume 7.5; Monocytes # (A) 0.4 k/uL (0-1.0); Monocytes % (A) 4 %; Neutrophils # (A) 7.7 k/uL (1.3-7.7); Neutrophils % (A) 77 %; Platelet Count 245 k/uL (150-450); Poikilocytosis Slight; RBC 5.03 m/uL (3.80-5.40); RDW 14.6 % (11.5-15.5)
[2024-09-30 11:57] LABS: ALT 14 U/L (4-34); African American GFR (CKD) >90 (>60 ml/min/1.73 sqM); Albumin 4.7 g/dL (3.5-5.0); Anion Gap 6 mmol/L; Blood Urea Nitrogen 11 mg/dL (7-17); Calcium 9.9 mg/dL (8.4-10.2); Carbon Dioxide 35 mmol/L (22-30); Chloride 98 mmol/L (98-107); Creatine Kinase 123 U/L (30-135); Glucose 259 mg/dL (74-99); Non-African American GFR(CKD) >90 (>60 ml/min/1.73 sqM); Sodium 139 mmol/L (137-145); Total Bilirubin 0.7 mg/dL (0.2-1.3); Total Protein 7.9 g/dL (6.3-8.2)
[2024-09-30 11:58] LABS: AST 33 U/L (14-36); Alkaline Phosphatase 94 U/L (38-126); Potassium 4.8 mmol/L (3.5-5.1)
--- NOTE | 2024-09-30 12:15 | XR ---
EXAMINATION TYPE: XR foot complete RT DATE OF EXAM: 09/30/2024 12:05 PM COMPARISON: None. CLINICAL INDICATION: Female, 59 years old with history of fall/pain, pain TECHNIQUE: Frontal, lateral, and oblique images of the right foot are obtained. FINDINGS: Osseous structures are demineralized which is noted to lower radiograph sensitivity. There is no acute displaced fracture evident in the right foot. The joint spaces in the right foot appear within normal limits. [id number] diffuse subcutaneous edema is seen. IMPRESSION: There is no acute displaced fracture in the right foot. [facility], , 09/30/2024 12:13 PM
--- NOTE | 2024-09-30 12:52 | CT ---
EXAMINATION TYPE: CT brain cspine wo con DATE OF EXAM: 09/30/2024 12:38 PM COMPARISON: None. CLINICAL INDICATION: Female, 59 years old with history of fall/BELTRAN; Multiple falls x 2 days, hit head last night, denies LOC., pain TECHNIQUE: Brain: Multiple axial CT images of the brain were obtained without IV contrast. Cspine: Axial CT images from the skull base to the inferior aspect of T2 we obtained without intraven ous contrast. Coronal and sagittal reformatted images were also reviewed. . CT DLP: 1453.8 mGycm, Automated exposure control for dose reduction was used. FINDINGS: Brain: Extra-axial spaces: No abnormal extra-axial fluid collections. Ventricular system: Within normal limits Cerebral parenchyma: No acute intraparenchymal hemorrhage or mass effect. The austin-white junction is well differentiated. Cerebellum: Unremarkable. Mass effect: No evidence of midline shift. Intracranial vasculature: unremarkable Soft tissues: Normal. Calvarium/osseous structures: No depressed skull fracture. Paranasal sinuses and mastoid air cells: Clear. Visualized orbits: Orbital contents are intact. Cervical spine: Fracture: None. Osseous structures: Multilevel degenerative disc disease changes with endplate spurring and disc oste ophyte complex's. Fixation hardware at C5-C6 and C7 appears intact. Vertebral alignment: Within normal limits. Spinal canal/Neural Foramina: No evidence of significant spinal canal narrowing. No evidence for sign ificant neural foraminal stenosis. Neck soft tissues: Prevertebral soft tissues are within normal limits. Other: The airway is patent. The lung apices are clear. IMPRESSION: 1. No acute intracranial process. 2. No evidence of cervical spine fracture. 3. Mild multilevel degenerative disc disease. 4. Fixation hardware in the spine appears intact. [facility], , 09/30/2024 12:50 PM
[2024-09-30] MEDS: HYDROmorphone 0.5 MG/0.5 ML SYRINGE IVP STA (13:22)
[2024-09-30] MEDS ORDERED: NALOXONE 0.4 MG/ML 1 ML VIAL IV PRN (13:49)
[2024-09-30 14:13] LABS: Appearance,Urine Cloudy (Clear); Bacteria,Urine Rare /hpf; Bilirubin,Urine Negative (Negative); Blood,Urine Negative (Negative); Color,Urine Colorless; Glucose,Urine (UA) Negative (Negative); Ketones,Urine Negative (Negative); Leukocyte Esterase,Urine Negative (Negative); Nitrite,Urine Negative (Negative); PH, Urine 6.5 (5.0-8.0); Protein,Urine Negative (Negative); RBC,Urine 3 /hpf (0-5); Specific Gravity,Urine 1.011 (1.001-1.035); Squamous Epithelial Cell,Urine 1 /hpf (0-4); Urobilinogen,Urine <2.0 mg/dL (<2.0); WBC,Urine 2 /hpf (0-5)
[2024-09-30] MEDS: HYDROmorphone 0.5 MG/0.5 ML SYRINGE IVP PRN (16:17)
[2024-09-30] MEDS ORDERED: GABAPENTIN 400 MG CAP PO PRN (18:41)
[2024-09-30] MEDS ORDERED: NON FORMULARY DRUG (Buprenorphine/Naloxone 8mg/2mg 1 EACH Film) SUBLINGUAL PRN (18:41)
[2024-09-30] MEDS ORDERED: LORATADINE 10 MG TAB PO PRN (18:41)
[2024-09-30] MEDS: SODIUM CHLORIDE 0.9% 1,000 ML IV SCH (18:53)
[2024-09-30] MEDS: clonazePAM 0.5 MG TAB PO SCH (18:56)
[2024-09-30] MEDS: metFORMIN 500 MG TAB PO SCH (18:56)
[2024-09-30] MEDS: ENOXAPARIN 40 MG/0.4 ML SYRINGE SQ SCH (18:57)
[2024-09-30] MEDS: ATORVASTATIN 80 MG TAB PO SCH (19:42)
[2024-09-30] MEDS: LITHIUM CARBONATE 300 MG CAP PO SCH (19:42)
[2024-09-30] MEDS: ALBUTEROL NEBULIZED 2.5 MG/3 ML INHALATION PRN (19:46)
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
[2024-09-30 20:35] LABS: Glucose,Whole Blood 162 mg/dL (70-110)
[2024-10-01] MEDS: HYDROmorphone 1 MG/ML 1 ML SYRINGE IVP PRN (00:05)
[2024-10-01 06:01] LABS: Glucose,Whole Blood 170 mg/dL (70-110)
[2024-10-01 07:05] LABS: Glucose,Whole Blood 146 mg/dL (70-110)
[2024-10-01] MEDS: lisinopriL 5 MG TAB PO SCH (08:07)
[2024-10-01 08:51] VITALS: RESP 17; TEMP 98.4
[2024-10-01] MEDS: ACETAMINOPHEN TAB 325 MG TAB PO PRN (09:04)
[2024-10-01] MEDS: TIOTROPIUM 2.5 MCG INHALER INHALATION PRN (09:27)
[2024-10-01] MEDS: SYMBICORT 160-4.5 MCG INHALER INHALATION PRN (09:27)
[2024-10-01 11:18] VITALS: BP 159/77; PULSE 82
[2024-10-01 12:11] LABS: Glucose,Whole Blood 134 mg/dL (70-110)
--- NOTE | 2024-10-04 14:29 | P.DS ---
Providers Date of admission: 09/30/24 13:49 Expected date of discharge: 10/01/24 Attending physician: Shen Moreno Primary care physician: Gifty Willis Hospital Course: Final diagnosis -Recurrent falls in last 2 weeks patient says about 12. Could be from tripping turning around being off balance. Patient is pending lower back surgery [facility]. -Anxiety -Chronic insomnia -Hyperlipidemia -Essential hypertension -Bipolar disorder -Diabetes mellitus type 2 on oral hypoglycemic -Chronic nicotine dependence, cigarette smoker -COPD in a current smoker with mild exacerbation -Obesity BMI 36.3 -Primary osteoarthritis -Previous narcotic use -Full code Discharge disposition Patient is being discharged in a stable condition with guarded prognosis to home. Patient will follow-up with Dr. Gifty Willis in the outpatient setting upon discharge. Patient is to continue with outpatient follow-up with pain management as scheduled. Total time taken is greater than 35 minutes. Hospital course This is a 59-year-old female who was recently admitted with recurrent falls and generalized weakness. Patient evaluated by physical therapy recommending rehab although patient is refusing and adamant she is returning home. reports will be taking her home on discharge. Patient scheduled to follow-up with orthopedics outpatient and encouraged to follow-up with primary care provider and keep appointments as scheduled. Currently no reports of chest pain, shortness of breath, or palpitations. Patient is afebrile. No reports of nausea or vomiting and patient is tolerating diet. Patient will be discharged home today. Guarded prognosis. High risk for readmissions. Physical exam: Gen: This is a 59-year-old female who is awake, alert and oriented x 3, well- developed, appears older than stated age, obese HEENT: Head is atraumatic, normocephalic. Pupils equal, round. Sclerae is anicteric. NECK: Supple. No JVD. No lymphadenopathy. No thyromegaly. LUNGS: Diminished breath sounds bilaterally otherwise clear to auscultation. No wheezes or rhonchi. No intercostal retractions. HEART: S1, S2 are muffled ABDOMEN: Soft. Obese bowel sounds are present. No masses. No tenderness. EXTREMITIES: No pedal edema. No calf tenderness. NEUROLOGICAL: Patient is awake, alert and oriented x3. Cranial nerves 2 through 12 are grossly intact. Diffusely weak Please refer to medication reconciliation sheet for a list of medications. The impression and plan of care has been dictated by Huyen Gibbons, Nurse Practitioner as directed. Dr. Ruben MD I have performed a history and examination and MDM of this patient, discussed the same with the dictator, and agree with the dictator's assessment and plan as written ,documented as a scribe. Based on total visit time, I have performed more than 50% of the visit. Patient Condition at Discharge: Fair Plan - Discharge Summary New Discharge Prescriptions: New Acetaminophen Tab [Tylenol] 650 mg PO Q6HR PRN tab PRN Reason: Mild Pain Or Fever > 100.5 Continue lisinopriL [Zestril] 5 mg PO DAILY Fluticasone/Umeclidin/Vilanter [Trelegy Ellipta 200-62.5-25] 1 puff INHALATION RT-DAILY PRN PRN Reason: Shortness Of Breath Ibuprofen [Motrin] 800 mg PO BID PRN PRN Reason: Pain Gabapentin [Neurontin] 400 mg PO TID PRN PRN Reason: Pain Buprenorphine/Naloxone 8Mg/2Mg [Suboxone 8-2Mg Film] 1 film SL TID PRN PRN Reason: Pain fluPHENAZine [Prolixin] 5 mg PO BID metFORMIN HCL [Glucophage] 500 mg PO BID Rosuvastatin Calcium 40 mg PO HS Albuterol Nebulized [Ventolin Nebulized] 2.5 mg INHALATION RT-TID PRN PRN Reason: Shortness Of Breath clonazePAM [KlonoPIN] 0.5 mg PO QID Levocetirizine Dihydrochloride 5 mg PO DAILY PRN PRN Reason: Allergy Symptoms [place] Carbonate 300 mg PO TID No Action HYDROcodone/APAP 5-325MG [Closplint 5-325] 1 tab PO Q6HR PRN PRN Reason: Pain Discharge Medication List fluPHENAZine [Prolixin] 5 mg PO BID 11/14/22 [History] lisinopriL [Zestril] 5 mg PO DAILY 11/14/22 [History] metFORMIN HCL [Glucophage] 500 mg PO BID 11/14/22 [History] Rosuvastatin Calcium 40 mg PO HS 12/05/22 [History] Albuterol Nebulized [Ventolin Nebulized] 2.5 mg INHALATION RT-TID PRN 09/30/24 [History] Buprenorphine/Naloxone 8Mg/2Mg [Suboxone 8-2Mg Film] 1 film SL TID PRN 09/30/24 [History] Fluticasone/Umeclidin/Vilanter [Trelegy Ellipta 200-62.5-25] 1 puff INHALATION RT-DAILY PRN 09/30/24 [History] Gabapentin [Neurontin] 400 mg PO TID PRN 09/30/24 [History] Ibuprofen [Motrin] 800 mg PO BID PRN 09/30/24 [History] Levocetirizine Dihydrochloride 5 mg PO DAILY PRN 09/30/24 [History] [place] Carbonate 300 mg PO TID 09/30/24 [History] clonazePAM [KlonoPIN] 0.5 mg PO QID 09/30/24 [History] Acetaminophen Tab [Tylenol] 650 mg PO Q6HR PRN tab 10/01/24 [Rx] HYDROcodone/APAP 5-325MG [Closplint 5-325] 1 tab PO Q6HR PRN 10/01/24 [History] Follow up Appointment(s)/Referral(s): Gifty Willis MD [Primary Care Provider] - 1-2 days (please call the office to schedule a follow up appointment.) [employer] [NON-STAFF] - As Needed ( Call and ask to speak with someone in [employer] to request loan for commode ) Patient Instructions/Handouts: Hydrocodone/Acetaminophen (By mouth), Weakness (DC), Fall Prevention (DC) Activity/Diet/Wound Care/Special Instructions: Follow-up with primary care provider on discharge Recommend home care with PT/OT therapy Continue taking medications as prescribed and discussed with your primary care provider regarding adjusting medications Follow-up pain management outpatient Discharge Disposition: HOME SELF-CARE
== END 2024-10-01 12:55 | disposition home or self-care (01) ==
LOC: EC 10:22 → INTOOBSV 13:49 → 5NMEDONC 13:49
PROVIDERS: ADMIT Hospitalist; ATTEND Hospitalist
DX: R53.1 Weakness (principal); R29.6 Repeated falls; J44.1 Chronic obstructive pulmonary disease with (acute) exacerbation; E11.9 Type 2 diabetes mellitus without complications; E78.5 Hyperlipidemia, unspecified; I10 Essential (primary) hypertension; F31.9 Bipolar disorder, unspecified; F41.9 Anxiety disorder, unspecified; F51.04 Psychophysiologic insomnia; F17.210 Nicotine dependence, cigarettes, uncomplicated; M19.91 Primary osteoarthritis, unspecified site; E66.9 Obesity, unspecified; Z68.36 Body mass index [BMI] 36.0-36.9, adult; Z86.16 Personal history of COVID-19; Z79.51 Long term (current) use of inhaled steroids; Z79.84 Long term (current) use of oral hypoglycemic drugs; Z79.899 Other long term (current) drug therapy
CPT/HCPCS: 96376 ×2; 96372 ×2; 96374; 99285; 36415; 94640 ×3; 93005; 97161; 80053; 82550; 85025; 81001; 73630; 72125; 70450; G0378 ×2; J1650 ×2; J1171 ×2